=== PATIENT | female | born 1950 | race Caucasian/White ===

== ENCOUNTER 2020-07-28 13:18 | Inpatient (IN) | payer MEDICARE, OTHER, SELFPAY ==
[2020-07-28] VITALS (9 sets, daily range): BP systolic 125–128; BP diastolic 60–73; PULSE 68–87; RESP 16–18; TEMP 36.7–36.9; O2SAT 94–98; BMI 30.5; BMI 30.6
--- NOTE | 2020-07-28 13:17 | ECHOCS_ITS ---
Reason For Study: Syncope/Near Syncope Procedure This was a 2D Doppler, Color Flow transthoracic echocardiogram. The study was technically difficult. Contrast injection was performed. Exam performed portable in patient room. Left Ventricle Normal LV size. Left ventricular systolic function is normal. The estimated ejection fraction is 65 %. There is evidence of diastolic dysfunction. No regional wall motion abnormalities noted. Right Ventricle Normal RV size. Normal systolic function. Atria The left atrium is mildly enlarged. Normal right atrium. No doppler evidence for ASD. Bubble contrast study negative for right to left interatrial shunt. Mitral Valve There is moderate to severe mitral annular calcification. Extension of the mitral annular calcification onto the base of the posterior mitral valve leaflet. Mild (1+) mitral valve insufficiency. Tricuspid Valve Normal tricuspid valve. Trivial tricuspid valve insufficiency. Right ventricular systolic pressure estimated to be 28 mmHg. Aortic Valve Trisinus/trileaflet aortic valve. Mild focal aortic valve calcification. Pulmonic Valve The pulmonic valve is not well visualized. Great Vessels Normal sized aortic root. Pericardium/Pleural No pericardial effusion. Medication Diluted definity 3ml given slow IV push to enhance endocardial definition. Performed a rapid injection of agitated mix of 9 cc saline and 1cc air to assess for atrial septal defect. MMode/2D Measurements & Calculations LVIDd: 4.6 cm IVSd: 0.91 cm Ao root diam: 3.7 cm LVIDs: 2.8 cm LVPWd: 1.2 cm LA dimension: 4.0 cm FS: 39.7 % LAV(MOD-bp): 67.9 ml LA A4 area: 19.7 cm2 RA A4 area: 16.6 cm2 LAV(MOD-bp) Indexed: 37.4 ml/m2 LAV(MOD-sp2): 54.0 ml LAV(MOD-sp4): 59.0 ml Time Measurements MV dec time: 0.29 sec Doppler Measurements & Calculations MV E max kiran: 120.5 cm/sec Lat Peak E' Kiran: 7.0 cm/sec Med Peak E' Kiran: 7.5 cm/sec MV A max kiran: 158.4 cm/sec E/E' lat: 17.3 E/E' med: 16.1 MV E/A: 0.76 MV V2 max: 184.9 cm/sec MV P1/2t max kiran: 156.0 cm/sec Ao V2 max: 126.8 cm/sec MV max P.7 mmHg MV P1/2t: 97.2 msec Ao max P.4 mmHg MV V2 mean: 98.6 cm/sec MV dec slope: 470.0 cm/sec2 MV mean P.6 mmHg MV V2 VTI: 47.6 cm MVA(P1/2t): 2.3 cm2 LV V1 max: 108.9 cm/sec MR max kiran: 439.4 cm/sec PA V2 max: 92.5 cm/sec LV V1 max P.7 mmHg MR max P.2 mmHg TR max kiran: 250.4 cm/sec TR max P.1 mmHg Interpretation Summary The study was technically difficult. Contrast injection was performed. Left ventricular systolic function is normal. The estimated ejection fraction is 65 %. The left atrium is mildly enlarged. There is moderate to severe mitral annular calcification. Extension of the mitral annular calcification onto the base of the posterior mitral valve leaflet. Mild (1+) mitral valve insufficiency. Trivial tricuspid valve insufficiency. Mild focal aortic valve calcification. Right ventricular systolic pressure estimated to be 28 mmHg. There is evidence of diastolic dysfunction. Bubble contrast study negative for right to left interatrial shunt. Ordering Physician: Mercedes Torres Performed By: Young Witt RCS
--- NOTE | 2020-07-28 13:18 | MRI_ITS ---
We are attempting to reach an attending provider to discuss findings. An addendum with communication details will be sent when the communication is complete. STUDY: MRI BRAIN WITHOUT CONTRAST REASON FOR EXAM: Female, 70 years old. CVA, memory loss since Monday TECHNIQUE: Standardized multiplanar fat and water weighted pulse sequences were obtained. COMPARISON: None. FINDINGS: Normal size of the ventricles and extra-axial spaces for the patient''s age. Normal white matter tracts of the supratentorial brain. There are multiple focal hyperintensities of the left parietal lobe which demonstrate restricted diffusion consistent with acute infarct. Normal T2* images of the brain without demonstrated susceptibility artifact. There is no demonstrated hemosiderin stain. Normal bilateral basal ganglia. Normal thalami. There is no extra-axial fluid accumulation. Normal flow voids within the major intracranial circulation suggesting patency by spin echo criteria. Normal sella turcica, pituitary gland, infundibular stalk, optic chiasm and hypothalamus. Normal tectal plate and pineal gland. Normal midbrain, sandro and medulla. Normal cerebellum. Normal basal cisterns. Normal bilateral temporal bones. Normal bilateral internal auditory canals. No demonstrated orbital abnormality, within the constraints of a routine brain study. Normal visualized paranasal sinuses. Normal calvarium and skull base. Normal visualized soft tissue structures. Normal visualized upper cervical spine. MRI/Brain without Contrast IMPRESSION: Acute left middle cerebral artery infarcts. Electronically Signed: Dar Fuller MD at 16:18 EST Tel , Service support ,
--- NOTE | 2020-07-28 13:20 | MRI_ITS ---
STUDY: MRA NECK WITHOUT CONTRAST REASON FOR EXAM: Female, 70 years old. cva, memory loss TECHNIQUE: Source images were obtained, MIPs were performed. The study was performed unenhanced. COMPARISON: None. FINDINGS: RIGHT CAROTID ARTERIES: Normal right common carotid artery (CCA). Normal right common carotid bulb. Normal origin of the right internal carotid (ICA) artery without a hemodynamically significant stenosis. Normal visualized cervical portion of the right internal carotid artery. Normal origin of the right external carotid artery (ECA). LEFT CAROTID ARTERIES: Normal left common carotid artery (CCA). Normal left common carotid bulb. Normal origin of the left internal carotid (ICA) artery without a hemodynamically significant stenosis. Normal visualized cervical portion of the left internal carotid artery. Normal origin of the left external carotid artery (ECA). VERTEBRAL ARTERIES: Normal antegrade flow within the bilateral vertebral artery without a hemodynamically significant stenosis. MRI/MRA Neck without Contrast IMPRESSION: Normal bilateral cervical carotid and vertebral arteries. Electronically Signed: Dar Fuller MD at 16:21 EST Tel , Service support ,
--- NOTE | 2020-07-28 13:20 | MRI_ITS ---
STUDY: MRA OF THE HEAD WITHOUT CONTRAST REASON FOR EXAM: Female, 70 years old. cva, memory loss since Monday TECHNIQUE: 3-D [id number]-xp-[id number] (TOF) imaging was performed with MIPs. The study was performed unenhanced. COMPARISON: None. FINDINGS: Normal bilateral petrous carotid arteries. Normal right cavernous carotid artery with a normal supraclinoid bifurcation. Normal left cavernous carotid artery with a normal supraclinoid bifurcation. Normal right A1 segments of the anterior cerebral artery. Normal left A1 segments of the anterior cerebral artery. Normal intact anterior communicating artery (ACOM). Normal bilateral A2 segments of the anterior cerebral arteries. Normal right M1 and M2 segments of the middle cerebral arteries, with a normal M1 bifurcation. Normal left M1 and M2 segments of the middle cerebral arteries, with a normal M1 bifurcation. Normal right posterior communicating artery (PCOM). There is a persistent origin of the left posterior cerebral artery with absence of the P1 segment of the left posterior cerebral artery. Normal bilateral vertebral arteries. Normal basilar artery with a normal basilar bifurcation. The visualized bilateral superior cerebellar (SCA) arteries are normal. Normal bilateral P1, P2 and visualized P3 segments of the posterior cerebral arteries. There is no demonstrated aneurysm of the [place]. There is no major vessel occlusion or hemodynamically significant stenosis. There is no demonstrated abnormality of the visualized brain. MRI/MRA Head ONLY without Contrast IMPRESSION: Normal MRA of the head Electronically Signed: Dar Fuller MD at 16:19 EST Tel , Service support ,
[2020-07-28 14:32] LABS: Magnesium 2.3 mg/dL (1.6-2.6)
--- NOTE | 2020-07-28 15:13 | PCM.HP.STD ---
Problem List (1) CVA (cerebral vascular accident) Status: Acute Qualifiers: CVA mechanism: unspecified Qualified Code(s): I63.9 - Cerebral infarction, unspecified (2) Hypokalemia Status: Acute (3) HTN (hypertension) Status: Chronic Qualifiers: Hypertension type: essential hypertension Qualified Code(s): I10 - Essential (primary) hypertension (4) Obesity Status: Chronic Qualifiers: Obesity type: due to excess calories Obesity classification: adult class 1 (BMI 30 - 34.9) Serious obesity comorbidity presence: unspecified whether serious comorbidity present Body mass index: BMI 30.0-30.9 Qualified Code(s): E66.09 - Other obesity due to excess calories; Z68.30 - Body mass index [BMI]30.0-30.9, adult (5) Former tobacco use Status: Chronic History of Present Illness Date of Admission: 07/28/20 Chief Complaint: Expressive aphasia, confusion, OSH ED evaluation with CT w/ subacute CVA The patient is a 70 y/o w/ PMHx: HTN, Obesity, Former tobacco use otherwise healthy who presents to the [facility] as a direct admission on 07/28/20 from [facility] with history of onset mild confusion and difficulty getting words out and recalling sequences, i.e. phone numbers when she saw her brother on Monday, not markedly improving prompting eventual ED evaluation on day of presentation. At OSH evaluation included vital signs afebrile, heart rate 71, BP 106/60, respiratory rate 18, on a percent room air, CT head with a small left frontal infarct suspected to be subacute, EKG was sinus rhythm with no acute evidence of ischemia, rapid Covid testing negative, CBC and BMP notable only for K3.2 with replacement administered in their emergency room prior to transfer. Given patient subacute findings on CT request to transfer to [facility] for further stroke evaluation and work-up. At their facility NIH stroke scale had been 0, upon [facility] presentation per nursing staff they felt she still had some aphasia however upon physician evaluation there was no significant apparent aphasia. Past Medical History Past Medical History (Chronic Problems): Chronic Problems HTN (hypertension) (Chronic) Obesity (Chronic) Former tobacco use (Chronic) Home Medications: Ambulatory Orders Medication Instructions Recorded Benazepril HCl 60 mg PO DAILY 07/28/20 Hydrochlorothiazide [Hctz] 25 mg PO DAILY 07/28/20 traMADol [Ultram (G)] 50 mg PO Q12H PRN PRN 07/28/20 Surgical History: - - Appendectomy, tonsillectomy, hysterectomy, left total hip replacement, right total knee replacement. 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 Smoking Status: Former smoker - Patient quit cigarette tobacco usage in approximately 1999 but states she is not exactly sure which year with prior to this about 1 pack/day since she been a teenager. Tobacco Use: Non-smoker Alcohol: None Drugs: None - *Family History Maternal History Items: - - Patient notes that her mother at age 43 secondary to complications from a brain aneurysm. Paternal History Items: Cancer - Father with a history of prostate cancer. Review of Systems Constitutional: Reports: Fatigue. Denies: Chills, Fever, Weight Change HEENT: Denies: Head Aches, Sinus Congestion, Sinus Drainage Cardiovascular: Denies: Chest Pain, Palpitations Respiratory: Denies: Cough, Shortness of breath at rest, Sputum production Gastrointestinal: Denies: Abdominal Pain, Nausea, Vomiting Genitourinary: Denies: Dysuria Musculoskeletal: Reports: Joint Pain. Denies: Joint Tenderness Skin: Denies: Rash, Wounds Neurological: Reports: Confusion, - - Aphasic.. Denies: Focal weakness, Numbness, Tingling Psychiatric: Denies: Anxiety, Depression, Homicidal Ideations, Suicidal Ideations Hematologic/ Lymphatic: Denies: Easy Bruising, Easy Bleeding VTE Information - Inpt Only VTE Present on Admission: No VTE Mechan Device Prophylaxis: SCD's VTE Pharm Prophylaxis ordered?: Yes Subjective: Patient seated upright in the PCU bed, no acute distress, some noted aphasia per nursing staff upon presentation but upon repeat hospice evaluation no obvious aphasia present. Objective: Physical Examination: General: awake, alert, oriented x > 3 [address] person, place, year and additionally month as well as presidents current and pending, cooperative, seated upright in the PCU bed in no apparent distress. Skin: normal color, turgor, no icterus, cyanosis. HEENT: AT/NC, EOMI, PERRLA, MMM, no carotid bruits or JVD noted. Lungs: CTA bilaterally, moderate effort, mild decrease BL bases, no rales, ronchi or wheezing. Heart: Regular rate and rhythm; no gallop, rub audible. Abdomen: soft, obese, NTTP, ND, normal BS, no HSM. Extremities: no cyanosis, clubbing, or edema. Neurological: patient awake, alert, oriented as noted; cognitive function suspect baseline intact; pupils equally reactive to light and accomodation; cranial nerves II-XII grossly normal, moving all 4 extremities, no focal deficits, strength preserved, sensation intact, normal [id number] and [id number], negative Babinski, no obvious aphasia upon current examination but some concerns per staff on initial presentation. Psychiatric: affect appears normal, no acute evidence of depressive or anxiety feelings. - Physical Exam Vitals/I&O's: Vital Signs Temp Pulse Resp BP Pulse Ox 98.0 F 87 18 125/70 H 96 07/28/20 13:30 07/28/20 13:30 07/28/20 13:30 07/28/20 13:30 07/28/20 13:30 Oxygen Delivery Method Room Air Weight: 172 lb 9.951 oz Body Mass Index (BMI) 30.5 Laboratory Results 07/28/20 14:08: Magnesium 2.3 Current Medications Acetaminophen (Acetaminophen 325 Mg Tablet) 650 mg PO Q6H PRN PRN PRN Reason: Pain Score 1-10/Temp > 100.7 F Al Hydroxide/Mg Hydroxide (Mag Hydrox/Al Hydrox/Simeth 30 Ml Udc) 30 ml PO Q6H PRN PRN PRN Reason: Gastric Burning Albuterol Sulfate (Albuterol 2.5 Mg/3 Ml Vial.Neb.) 2.5 mg INHALATION Q2H PRN PRN PRN Reason: Dyspnea, wheezing Aspirin (Aspirin 81 Mg Tab.Chew) 81 mg PO DAILY@0800 REX Atorvastatin Calcium (Atorvastatin Calcium 80 Mg Tablet) 80 mg PO QHS REX Enoxaparin Sodium (Enoxaparin 40 Mg/0.4 Ml Syringe) 40 mg SC DAILY REX Famotidine (Famotidine 20 Mg Tablet) 20 mg PO BID REX Guaifenesin (Guaifenesin 10 Ml Udc (200mg/10ml)) 20 ml PO Q4H PRN PRN PRN Reason: COUGH Hydralazine HCl (Hydralazine 20 Mg/Ml Vial) 5 mg IV Q30M PRN PRN Reason: to maintain BP goals Sodium Chloride () 1,000 mls @ 100 mls/hr IV .Q10H REX Labetalol HCl (Labetalol (Prefilled) 20 Mg/4 Ml) 10 - 20 mg IV Q10M PRN PRN PRN Reason: to Maintain BP Goals Magnesium Hydroxide (Magnesium Hydroxide 30 Ml Udc) 30 ml PO DAILY PRN PRN PRN Reason: Constipation Melatonin (Melatonin 3 Mg Tablet) 3 mg PO QHS PRN PRN PRN Reason: INSOMNIA Nitroglycerin (Nitroglycerin (Inpatient Use) 0.4 Mg Tab.Subl) 0.4 mg SUBLINGUAL Q5M PRN PRN Reason: CARDIAC/CHEST PAIN Ondansetron HCl (Ondansetron 4 Mg/2 Ml Vial) 4 mg IV Q8H PRN PRN PRN Reason: NAUSEA/VOMITING Prochlorperazine Edisylate (Prochlorperazine 10 Mg/2 Ml Vial) 5 mg IV Q4H PRN PRN PRN Reason: Breakthrough Nausea/Vomiting Psyllium Hydrophilic Mucilloid (Psyllium 1 Packet) 1 packet PO DAILY PRN PRN PRN Reason: Constipation Senna/Docusate Sodium (Senna/Docusate Sodium 1 Tablet) 2 tablet PO BID PRN PRN PRN Reason: Constipation Throat Lozenges (Benzocaine/Menthol 1 Lozenge) 1 lozenge MUCOUS MEM Q2H PRN PRN PRN Reason: SORE THROAT Assessment/Plan All Active Problems CVA (cerebral vascular accident) (Acute) Hypokalemia (Acute) The patient is a 70 y/o w/ PMHx: HTN, Obesity, Former tobacco use otherwise healthy who presents to the [facility] as a direct admission on 07/28/20 from [facility] with history of onset mild confusion and difficulty getting words out and recalling sequences, i.e. phone numbers when she saw her brother on Monday, not markedly improving prompting eventual ED evaluation on day of presentation. 1. Aphasia secondary to subacute left frontal stroke: Will admit to the PCU as direct admission, outside ED CT with subacute L frontal CVA, will obtain MRI Brain, MRA Head and Neck, ECHO, PT/OT/Speech/Nutrition evaluation per protocol. Will plan to consult Neurology for evaluation following completion of studies. Will allow permissive HTN, maintain on asa, add statin w/ AM FLP, fall precautions. Mag, TSH, Hgba1c requested. 2. Hypokalemia: Admission K+ 3.2, magnesium level requested, supplementation given, repeat level in AM. 3. Hypertension: We will maintain on permissive hypertension initially given current presentation although given timeline may initiate regimen earlier. As needed agents available. 4. Obesity: Weight loss and lifestyle changes encouraged. 5. Former tobacco use: Encourage continued tobacco cessation. 6. DVT prophylaxis: SCDs, Lovenox. 7. CODE status: Patient HCPPATRICIA is her son and living will she notes is not in place but interested in information. Discussed CODE status at length including difference between FULL code, DNR-CCA and DNR-CC status. Following discussions about the differences in these status, requested Full Code status. Encouraged her to discuss these items, concerns or any questions with CM/SW. Advanced Care Planning Face to Face Time: 16 minutes. Inpatient E&M: 12977 Init Hosp L3 Procedures: 02882 Advncd Care Plan 30 Min
[2020-07-28] MEDS: 0.9% Normal Saline 1,000 ML 100 ML IV (16:30)
[2020-07-28] MEDS: 0.9% Saline Lock 10 ML Syringe IV (16:54)
[2020-07-28] MEDS: Famotidine 20 MG Tablet PO (22:10)
[2020-07-29] VITALS (8 sets, daily range): BP systolic 113–146; BP diastolic 61–79; PULSE 70–90; RESP 16–18; TEMP 36.6–37.1; O2SAT 96–98; BMI 30.5
[2020-07-29] MEDS: 0.9% Normal Saline 1,000 ML 100 ML IV ×2 (01:51→11:52)
[2020-07-29 05:39] LABS: Absolute Lymphocyte Count 1.39 X10^3/uL (0.83-4.51); Absolute Neutrophil Count 3.2 X10^3/uL (2.0-7.7); Basophil# 0.05 X10^3/uL; Basophil% 0.9 % (0-1); Eosinophil# 0.17 X10^3/uL; Eosinophils% 3.2 % (0-5); Hematocrit 40.4 % (37-47); Hemoglobin 13.1 g/dL (12.0-15.0); Lymphocyte # 1.39 X10^3/ul (4.0); Lymphocyte % 25.8 % (19-41); Mean Corp Hgb Conc 32.4 g/dL (32-36); Mean Corpuscular Hgb 30.1 pg (27.0-32.0); Mean Corpuscular Volume 92.9 fL (81-99); Mean Platelet Vol. 9.4 fl (6.2-12.0); Monocyte# 0.53 X10^3/uL; Monocyte% 9.9 % (0-10); NRBC Flagged by Analyzer 0 % (0-5); Neutrophil # 3.22 X10^3/uL (2.7-7.7); Neutrophil % 59.8 % (47-70); Platelet Count 159 K/mm3 (150-450); RBC Distribution Width CV 12.4 % (11.6-14.6); RBC Distribution Width SD 42.4 fl (35.1-43.9); Red Blood Count 4.35 M/mm3 (4.2-5.4); White Blood Count 5.4 K/mm3 (4.4-11.0)
[2020-07-29 06:08] LABS: ALB/GLOB Ratio 1.2 RATIO (0.9-2.4); AST(SGOT) 17 U/L (15-37); Alanine Aminotransfer ALT/SGPT 16 U/L (13-56); Albumin, Serum 3.2 g/dL (3.2-5.0); Alkaline Phosphatase 48 U/L (45-117); Anion Gap 7 (5-15); BUN 15 mg/dL (7-18); BUN/Creat Ratio 21.1 RATIO (10-20); Calcium,Total 8.3 mg/dL (8.5-10.1); Chloride 108 mmol/L (98-107); Cholesterol 151 mg/dL (200); Creatinine, Serum 0.71 mg/dL (0.55-1.02); EST Glomerular Filtration Rate 86 mL/min (>60); Est Glom Filt Rate - Afr Amer 104 mL/min (>60); Estimated Creatinine Clearance 42.68 ml/min; Globulin 2.6 g/dL (2.2-4.2); Glucose 89 mg/dL (74-106); High Density Lipoprotein 41 mg/dL; Potassium 3.4 mmol/L (3.5-5.1); Protein, Total 5.8 g/dL (6.4-8.2); Sodium Level 140 mmol/L (136-145); T4 Free Direct 1.08 ng/dL (0.76-1.46); Thyroid Stim Hormone (TSH) 0.61 uIU/mL (0.358-3.74); Triglycerides 121 mg/dL; Very Low Density Lipoprotein 24 mg/dL (5-40)
--- NOTE | 2020-07-29 06:19 | PCS.PANDOC ---
PANDEMIC DOCUMENTATION INITIATED: Date: 07/28/2020 Time: 190
--- NOTE | 2020-07-29 07:28 | TELEMED_ITS ---
[facility] Telemed has confirmed receipt of a request for visit. This document confirms receipt of the order initiating the consult. To find the results of the consultation, please view the patient's reports for the scanned Telemed Consult.
[2020-07-29 07:47] LABS: Hemoglobin A1c 5.2 % (3.8-5.6)
[2020-07-29] MEDS: Aspirin 81 MG TAB.CHEW PO (08:11)
--- NOTE | 2020-07-29 08:44 | CASEMGMT ---
SW completed a PHQ 9 with patient as she had a Stroke. She scored a 0. Patient declines any resources for counseling. Lesa LEMUS MSW
[2020-07-29] MEDS: Enoxaparin 40 MG/0.4 ML Syringe SC (09:33)
[2020-07-29] MEDS: Famotidine 20 MG Tablet PO (09:33)
--- NOTE | 2020-07-29 11:15 | CASEMGMT ---
Toney FUNEZ assessment: Face to Face with patient for initial transition planning/care coordination assessment. TONEY FUNEZ introduced self and role at [facility], pt voices understanding and consents to assessment at this time. Pt is sitting up in bed in no distress at this time. Pt is A/Ox4 at this time and answers all questions appropriately at this time. Care providers, pharmacy, and demographics verified at this time. Presentation: Direct admit from [place] for stroke-like sx's Admitting dx: Acute Left frontal CVA, aphasia PCP: Bing linder [facility] Specialists: Pt states no current specialists. [facility]erred [facility]acy: [facility] Insurance: MCR A/B Prescription Benefit: MCR D Living Will/HPOA: Pt states has HPOA and is aware that it's not on file at [facility] at this time. Pt states that her son, Emerson Tran, is HPOA. LNOK: Melchor Tran, son; Karina Cotter, sister Living Arrangements: Pt states her son lives with her in 1 story home and states no concerns at home at this time. Pt states is independent with ADL's. Pt states no concerns with getting up in room at this time and states no needs at discharge. Transportation: Pt states drives self and states no transportation concerns at this time. DME/HHC: Pt states no current DME or need for any at this time. Pt states has had HHC in the past and states no hx of SNF. Pt declines need for any further therapy at this time. Pt states no concerns with going home at time of discharge. 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 Pt states does not smoke cigarettes or drink ETOH. Pt states no further concerns/needs at this time. CM to follow for any therapy recommendations and any further discharge planning/needs. Advised pt to ask for CM if any further questions/concerns/needs arise, voices understanding. Pt Goal: Home Plan: [place] TONEY FUNEZ
--- NOTE | 2020-07-29 15:12 | DCINST_ITS ---
- Discharge Diagnoses Current Active Problems: Current Active and Chronic Problems CVA (cerebral vascular accident) (Acute) Hypokalemia (Acute) HTN (hypertension) (Chronic) Obesity (Chronic) Former tobacco use (Chronic) You will use the following diet at home:: Cardiac Your food should be the consistency of: Regular Your liquids should be the consistency of: Regular/Thin Discharge Activity: Return to Normal Activity Weight Bearing Status: Weight bearing as tolerated Call your doctor if you observe: Fever of 101 or Higher, Shortness of breath, Uncontrolled pain, - - difficulty with speech Instructions: ED Stroke, Completed, Symptoms of Stroke, What Is Ischemic Stroke?, Stroke: Self-Care Allergies/Adverse Reactions: Allergies No Known Allergies Allergy (Verified 07/28/20 16:32) Medications to take at Discharge Benazepril HCl 60 mg PO DAILY 07/28/20 Hydrochlorothiazide [Hctz] 25 mg PO DAILY 07/28/20 traMADol [Ultram] 50 mg PO Q12H PRN PRN 07/28/20 Aspirin [Aspirin, Baby] 81 mg PO DAILY@0800 #30 tab.chew 07/29/20 Atorvastatin Calcium [Lipitor] 80 mg PO QHS #30 tab 07/29/20 The following prescriptions were given: Aspirin [Aspirin, Baby] 81 mg PO DAILY@0800 #30 tab.chew Transmission Status: Received by [id number] Atorvastatin Calcium [Lipitor] 80 mg PO QHS #30 tab Transmission Status: Received by [id number] Primary Care Physician: Brenda Smart MD [Primary Care Provider] - Please follow up with your Primary Care Physician in: 1-2 weeks Test Results: Test results from this visit will be discussed in further detail at your follow- up appointment, if applicable. Proposed Discharge Date: 07/29/20
--- NOTE | 2020-07-29 15:19 | DS.PCM_ITS ---
Discharge Date and Diagnosis - Problem List Patient Problems: Active and Suspected Problems CVA (cerebral vascular accident) (Acute) Hypokalemia (Acute) Date of Admission: 07/28/20 Date of Discharge: 07/29/20 - Primary Discharge Diagnosis Acute Problems: Active Problems CVA (cerebral vascular accident) (Acute) Hypokalemia (Acute) - Secondary Discharge Diagnosis Chronic Problems: Chronic Problems HTN (hypertension) (Chronic) Obesity (Chronic) Former tobacco use (Chronic) Hospital Course and Treatment Imaging Results: Diagnostic Data Brain MRI 07/28/20 13:18 IMPRESSION: Acute left middle cerebral artery infarcts. Electronically Signed: Dar Fuller MD at 16:18 EST Tel , Service support , ADDENDUM: 07/28/20 1641 IMPRESSION: Acute left middle cerebral artery infarcts. N.B. : The above information has been verbally conveyed by Dar Fuller MD to Lexi Reddy, Charge Nurse, RN, on 07/28/2020 16:34:26 (ET). Electronically Signed: Dar Fuller MD at 16:18 EST Tel , Service support , Head MRA 07/28/20 13:20 IMPRESSION: Normal MRA of the head Electronically Signed: Dar Fuller MD at 16:19 EST Tel , Service support , Neck MRA 07/28/20 13:20 IMPRESSION: Normal bilateral cervical carotid and vertebral arteries. Electronically Signed: Dar Fuller MD at 16:21 EST Tel , Service support , neurology- SOC neurology Operations: None Procedures: 2-D Echocardiogram Summary of Care Provided: The patient is a 70 year old F with a PMH as outlined who was admitted directly from [facility] with a complaint of expressive aphasia and confusion. She said symptoms started 2 days prior to admission and she had difficulty getting words out and could not even remember her phone number. Symptoms were not improving so she decided to go to the ED at [facility] 2 days afterwards.CT of the brain showed a small left acute/subacute frontal infarct, EKG showed no acute ST changes, and covid test done was negative. She was given aspirin. NIH stroke scale at outside hospital was 0. She was transferred to [facility] for further work-up. She was admitted and managed for acute versus subacute left frontal stroke. Stay was also complicated by hypokalemia with potassium of 3.2 which was replaced. She had an MRI of the brain which showed acute left middle cerebral infarct. MRA of the head and neck were normal. Neurology was consulted, and per their recommendations, it was thought stroke was a cardio embolic stroke. 2D echo done showed EF of 65% with mildly enlarged left atrium and moderate to severe mitral annular calcification with 1+ mitral valve insufficiency and RVSP of 28 mmHg with evidence of diastolic dysfunction. Bubble contrast study was negative for [id number] atrial interatrial shunt. Lipid panel done was unremarkable and A1c was 5.2. This with occupational health professional Dr. Goel the about need for KRYSTIN. Better discussion, cardiology did not think that a KRYSTIN was beneficial at this time that patient would benefit from a 30-day event recorder to assess for any arrhythmia. Patient was evaluated by physical therapy. She was discharged home on 07/29/2020 with a prescription for p.o. aspirin 81 mg daily, atorvastatin 80 mg nightly and to have a 30-day event monitor, results of which are to be sent to Dr. Brandt for reading. She was also referred to Dr. Edwards neurologist on outpatient basis. She is to follow- up with her primary care doctor and neurology in 1 to 2 weeks. Seen and examined prior to discharge. She had no complaints and felt well. She did think that there was a slight problem with his speech but was much better than previously. Review of systems otherwise negative. Labs and vitals reviewed. Home medication reviewed and reconciled. Patient Problems: Active and Suspected Problems CVA (cerebral vascular accident) (Acute) Hypokalemia (Acute) - Physical Exam Vitals/I&O's: Vital Signs Temp Pulse Resp BP Pulse Ox 98.0 F 90 16 146/77 H 96 07/29/20 13:30 07/29/20 13:30 07/29/20 13:30 07/29/20 13:30 07/29/20 13:30 Oxygen Delivery Method Room Air Weight: 172 lb 9.951 oz Body Mass Index (BMI) 30.5 Intake and Output for Last 24 Hours 07/27/20 07/28/20 07/29/20 23:59 23:59 23:59 Intake Total 240 / 240 2175 / 2175 Balance 240 / 240 2175 / 2175 General: Alert, Oriented x3, Cooperative, No apparent distress HEENT: Atraumatic, PERRLA, EOMI, Normocephalic Oral: Dry Mucosa Neck: Supple, No JVD, Negative Carotid Bruits Lungs: Clear to auscultation, Normal air movement Cardiovascular: Regular rate, Regular Rhythm, Normal S1, Normal S2, No murmurs Abdomen: Bowel Sounds Present, Soft, Non Tender, Non-Distended, No Hepato- splenomegaly Extremities: No clubbing, No cyanosis, No edema, Capillary Refill Less than 3 Seconds Skin: No rashes, No breakdown Musculoskeletal: No Tenderness to Palpation of Joints or Extremities Lymphatic: No Cervical, Supraclavicular, or Inguinal Adenopathy Neurological: Cranial nerves II-XII grossly intact, Motor Exam 5/5 strength throughout, - - mild expressive aphasia, with hesitancy in finding words Psych/Mental Status: Normal Affect, Appropriate, Alert and oriented to time, place, person, mood and affect Laboratory Results 07/29/20 05:20: WBC 5.4, RBC 4.35, Hgb 13.1, Hct 40.4, MCV 92.9, MCH 30.1, MCHC 32.4, RDW Std Deviation 42.4, RDW Coeff of Duran 12.4, Plt Count 159, MPV 9.4, Immature Gran % (Auto) 0.400, Neut % (Auto) 59.8, Lymph % (Auto) 25.8, Barron % (Auto) 9.9, Eos % (Auto) 3.2, Baso % (Auto) 0.9, Absolute Neuts (auto) 3.2, Absolute Lymphs (auto) 1.39, Nucleated RBC % 0 07/29/20 05:20: Sodium 140, Potassium 3.4 L, Chloride 108 H, Carbon Dioxide 25.0, Anion Gap 7, BUN 15, Creatinine 0.71, Estim Creat Clear Calc 42.68, Est GFR (MDRD) Af Amer 104, Est GFR (MDRD) Non-Af 86, BUN/Creatinine Ratio 21.1 H, Glucose 89, Calcium 8.3 L, Total Bilirubin 0.90, AST 17, ALT 16, Alkaline Phosphatase 48, Total Protein 5.8 L, Albumin 3.2, Globulin 2.6, Albumin/Globulin Ratio 1.2, Triglycerides 121, Cholesterol 151, LDL Cholesterol 86, VLDL Cholesterol 24, HDL Cholesterol 41, TSH 0.61, Free T4 1.08 07/29/20 05:20: Hemoglobin A1c 5.2 Diagnostic Data Brain MRI 07/28/20 13:18 IMPRESSION: Acute left middle cerebral artery infarcts. Electronically Signed: Dar Fuller MD at 16:18 EST Tel , Service support , ADDENDUM: 07/28/20 1641 IMPRESSION: Acute left middle cerebral artery infarcts. N.B. : The above information has been verbally conveyed by Dar Fuller MD to Lexi Reddy, Charge Nurse, RN, on 07/28/2020 16:34:26 (ET). Electronically Signed: Dar Fuller MD at 16:18 EST Tel , Service support , Head MRA 07/28/20 13:20 IMPRESSION: Normal MRA of the head Electronically Signed: Dar Fuller MD at 16:19 EST Tel , Service support , Neck MRA 07/28/20 13:20 IMPRESSION: Normal bilateral cervical carotid and vertebral arteries. Electronically Signed: Dar Fuller MD at 16:21 EST Tel , Service support , Current Medications Acetaminophen (Acetaminophen 325 Mg Tablet) 650 mg PO Q6H PRN PRN PRN Reason: Pain Score 1-10/Temp > 100.7 F Al Hydroxide/Mg Hydroxide (Mag Hydrox/Al Hydrox/Simeth 30 Ml Udc) 30 ml PO Q6H PRN PRN PRN Reason: Gastric Burning Albuterol Sulfate (Albuterol 2.5 Mg/3 Ml Vial.Neb.) 2.5 mg INHALATION Q2H PRN PRN PRN Reason: Dyspnea, wheezing Aspirin (Aspirin 81 Mg Tab.Chew) 81 mg PO DAILY@0800 [facility] Last Admin: 07/29/20 08:11 Dose: 81 mg Documented by: Atorvastatin Calcium (Atorvastatin Calcium 80 Mg Tablet) 80 mg PO QHS [facility] Last Admin: 07/28/20 22:11 Dose: Not Given Documented by: Enoxaparin Sodium (Enoxaparin 40 Mg/0.4 Ml Syringe) 40 mg SC DAILY [facility] Last Admin: 07/29/20 09:33 Dose: 40 mg Documented by: Famotidine (Famotidine 20 Mg Tablet) 20 mg PO BID [facility] Last Admin: 07/29/20 09:33 Dose: 20 mg Documented by: Guaifenesin (Guaifenesin 10 Ml Udc (200mg/10ml)) 20 ml PO Q4H PRN PRN PRN Reason: COUGH Hydralazine HCl (Hydralazine 20 Mg/Ml Vial) 5 mg IV Q30M PRN PRN Reason: to maintain BP goals Sodium Chloride () 1,000 mls @ 100 mls/hr IV .Q10H [facility] Last Admin: 07/29/20 11:52 Dose: 100 mls/hr Documented by: Sodium Chloride () 250 mls @ 15 mls/hr IV .[id number] PRN PRN Reason: Saline Flush Sodium Chloride () 250 mls @ 15 mls/hr IV .[id number] PRN PRN Reason: Additional IVPB Infusion Labetalol HCl (Labetalol (Prefilled) 20 Mg/4 Ml) 10 - 20 mg IV Q10M PRN PRN PRN Reason: to Maintain BP Goals Magnesium Hydroxide (Magnesium Hydroxide 30 Ml Udc) 30 ml PO DAILY PRN PRN PRN Reason: Constipation Melatonin (Melatonin 3 Mg Tablet) 3 mg PO QHS PRN PRN PRN Reason: INSOMNIA Nitroglycerin (Nitroglycerin (Inpatient Use) 0.4 Mg Tab.Subl) 0.4 mg SUBLINGUAL Q5M PRN PRN Reason: CARDIAC/CHEST PAIN Ondansetron HCl (Ondansetron 4 Mg/2 Ml Vial) 4 mg IV Q8H PRN PRN PRN Reason: NAUSEA/VOMITING Prochlorperazine Edisylate (Prochlorperazine 10 Mg/2 Ml Vial) 5 mg IV Q4H PRN PRN PRN Reason: Breakthrough Nausea/Vomiting Psyllium Hydrophilic Mucilloid (Psyllium 1 Packet) 1 packet PO DAILY PRN PRN PRN Reason: Constipation Senna/Docusate Sodium (Senna/Docusate Sodium 1 Tablet) 2 tablet PO BID PRN PRN PRN Reason: Constipation Sodium Chloride (0.9% Saline Lock 10 Ml Syringe) 10 - 40 ml IV UD PRN PRN Reason: SALINE FLUSH Last Admin: 07/28/20 16:54 Dose: 10 ml Documented by: Throat Lozenges (Benzocaine/Menthol 1 Lozenge) 1 lozenge MUCOUS MEM Q2H PRN PRN PRN Reason: SORE THROAT Discharge Diet: Low fat/ Low Cholesterol Discharge Activity: Return to Normal Activity Weight Bearing Status: Weight bearing as tolerated Call your doctor if you observe: Fever of 101 or Higher, Shortness of breath, Uncontrolled pain, - - difficulty with speech Home Medications: Medications to take at Discharge Benazepril HCl 60 mg PO DAILY 07/28/20 Hydrochlorothiazide [Hctz] 25 mg PO DAILY 07/28/20 traMADol [Ultram] 50 mg PO Q12H PRN PRN 07/28/20 Aspirin [Aspirin, Baby] 81 mg PO DAILY@0800 #30 tab.chew 07/29/20 Atorvastatin Calcium [Lipitor] 80 mg PO QHS #30 tab 07/29/20 Following Prescriptions Were Given to Patient: Aspirin [Aspirin, Baby] 81 mg PO DAILY@0800 #30 tab.chew [facility] Atorvastatin Calcium [Lipitor] 80 mg PO QHS #30 tab Transmission Status: [facility] Primary Care Physician: Brenda Smart MD [Primary Care Provider] - Please follow up with your Primary Care Physician in: 1-2 weeks Please Follow Up With: Alex Parker MD When: 1-2 weeks Patient Instructions: Symptoms of Stroke, What Is Ischemic Stroke?, Stroke: Self-Care, ED Stroke, Completed Disposition: Home Minutes spent on discharge:: 40 Medical Necessity - Tobacco Use Smoking Status: Former smoker Tobacco Use: Non-smoker Meaningful Use Info Meaningful Use Diagnoses (Choose all that apply): Ischemic CVA - CVA Therapy Assessed for PT,OT and/or ST?: Yes - Ischemic Stroke Antithrombotic order at d/c?: Yes Dx of Atrial fib/flutter?: No Anticoagulant at discharge?: No Reason anticoagulant not ordered: Treatment not Indicated Statins at discharge?: Yes Primary Dx Acute Ischemic CVA?: Yes IV tPA ordered during stay?: No Reason IV t-PA not ordered: Treatment not Indicated - didnt meet the criteria for tPA Inpatient E&M: 32007 Disch Hosp
== END 2020-07-29 16:57 | disposition home or self-care (01) | DRG 66 ==
PROVIDERS: Family Medicine; Admitting Provider Student in an Organized Health Care Education/Training Program; PCP Pediatrics; Visit Provider Student in an Organized Health Care Education/Training Program
DX: I63.40 Cerebral infarction due to embolism of unspecified cerebral artery (principal); E87.6 Hypokalemia; I10 Essential (primary) hypertension; R47.01 Aphasia; E66.09 Other obesity due to excess calories; Z68.30 Body mass index [BMI] 30.0-30.9, adult; Z79.82 Long term (current) use of aspirin; Z80.42 Family history of malignant neoplasm of prostate; Z87.891 Personal history of nicotine dependence; Z90.710 Acquired absence of both cervix and uterus; Z96.642 Presence of left artificial hip joint; Z96.651 Presence of right artificial knee joint
CPT/HCPCS: 70544; 70547; 70551; 80053; 80061; 83036; 83735; 84439; 84443; 85025; 92507; 92523; 93271; 93306; 94762; 97802; J7030; Q9957; A4216; C8929